=== PATIENT | male | born 1980 | race Caucasian/White ===

== ENCOUNTER 2016-08-25 21:52 | Emergency (ER) | payer OTHER | END 2016-08-25 23:02 | disposition home or self-care (01) | LOC: ER 21:52 | DX: S60.222A Contusion of left hand, initial encounter (principal); F17.210 Nicotine dependence, cigarettes, uncomplicated; Z88.5 Allergy status to narcotic agent; Z88.8 Allergy status to other drugs, medicaments and biological substances; W22.8XXA Striking against or struck by other objects, initial encounter ==

== ENCOUNTER 2016-10-08 03:28 | Emergency (ER) | payer OTHER | END 2016-10-08 05:12 | disposition short-term general hospital (02) | LOC: ER 03:28 | DX: S61.215A Laceration without foreign body of left ring finger without damage to nail, initial encounter (principal); S66.127A Laceration of flexor muscle, fascia and tendon of left little finger at wrist and hand level, initial encounter; F17.210 Nicotine dependence, cigarettes, uncomplicated; Z88.5 Allergy status to narcotic agent; Z88.8 Allergy status to other drugs, medicaments and biological substances; W26.0XXA Contact with knife, initial encounter; Y92.69 Other specified industrial and construction area as the place of occurrence of the external cause; Y99.0 Civilian activity done for income or pay ==

== ENCOUNTER 2016-10-09 14:33 | Emergency (ER) | payer OTHER | END 2016-10-09 15:05 | disposition home or self-care (01) | LOC: ER 14:33 | DX: M79.642 Pain in left hand (principal); F17.210 Nicotine dependence, cigarettes, uncomplicated; Z88.5 Allergy status to narcotic agent; Z88.8 Allergy status to other drugs, medicaments and biological substances ==

== ENCOUNTER 2016-10-11 15:26 | Emergency (ER) | payer OTHER | END 2016-10-11 16:01 | disposition home or self-care (01) | LOC: ER 15:26 | DX: M79.645 Pain in left finger(s) (principal); F17.210 Nicotine dependence, cigarettes, uncomplicated; Z88.5 Allergy status to narcotic agent; Z88.8 Allergy status to other drugs, medicaments and biological substances ==